=== PATIENT | male | born 1970 | race Caucasian/White ===

== ENCOUNTER 2024-10-06 16:32 | Inpatient (IN) | payer OTHER ==
[2024-10-06 18:06] VITALS: BMI 26.9
[2024-10-06] MEDS ORDERED: guaiFENesin 600 MG TABLET.ER (FP) PO PRN (18:26)
[2024-10-06] MEDS ORDERED: BENZONATATE 200 MG CAPSULE PO PRN (18:26)
[2024-10-06] MEDS ORDERED: POLYETHYLENE GLYCOL (HEALTHYLAX) 3350 17 GM PACKET PO PRN (18:26)
[2024-10-06] MEDS ORDERED: MAGNESIUM HYDROX 2400MG/30ML ORAL SUSPENSION 30 ML CUP PO PRN (18:26)
[2024-10-06] MEDS ORDERED: NALOXONE (NARCAN) HCL 4 MG/0.1 ML SPRAY NS PRN (18:26)
[2024-10-06] MEDS ORDERED: IBUPROFEN 400 MG TABLET (FP) PO PRN (18:26)
[2024-10-06] MEDS ORDERED: MAG HYDROX/AL HYDROX/SIMETH 30 ML UNIT-DOSE CUP PO PRN (18:26)
[2024-10-06] MEDS ORDERED: BENZOCAINE/MENTHOL (CHLORASEPTIC ) LOZENGE MM PRN (18:26)
[2024-10-06] MEDS ORDERED: LOPERAMIDE HCL 2 MG CAPSULE PO PRN (18:26)
[2024-10-06] MEDS ORDERED: NICOTINE POLACRILEX 2 MG LOZENGE BC PRN (18:26)
[2024-10-06] MEDS ORDERED: NICOTINE POLACRILEX 2 MG GUM BUC PRN (18:26)
[2024-10-06] MEDS: THIAMINE 100 MG TABLET PO SCH (21:24)
[2024-10-06] MEDS: MELATONIN 5 MG TABLETS PO SCH (21:24)
[2024-10-06] MEDS: TUBERCULIN PPD 5 TU/0.1ML SYRINGE (IN PATIENT USE ONLY) ID ONE (21:28)
[2024-10-07] MEDS: PRENATAL VITAMINS W/ FOLIC ACID TABLET (FP) PO SCH (09:15)
[2024-10-07] MEDS: IBUPROFEN 600 MG TABLET (FP) PO PRN (09:15)
[2024-10-07 12:23] LABS: HEMATOCRIT 28.1 % (35.4-49); HEMOGLOBIN 8.8 GM/dL (11.7-16.9); MCH 20.2 pg (25.7-33.7); MCHC 31.1 g/dl (32.0-35.9); MEAN CELL VOLUME 64.9 fl (80-96); MEAN PLT VOLUME 8.6 fl (7.5-11.1); PLATELET COUNT 274 10^3/uL (134-434); RBC 4.33 M/mm3 (4.00-5.60); RDW 17.4 % (11.9-15.9); WHITE BLOOD COUNT 5.8 K/mm3 (4.0-10.0)
[2024-10-07 12:25] LABS: URINE APPEARANCE Cloudy; URINE BILIRUBIN Negative (NEGATIVE); URINE COLOR Dark yellow; URINE GLUCOSE (UA) Negative (NEGATIVE); URINE KETONE Negative (NEGATIVE); URINE LEUK ESTERASE Negative (NEGATIVE); URINE NITRITE Negative (NEGATIVE); URINE PROTEIN Negative (NEGATIVE); URINE UROBILINOGEN >=8.0 E.U./dl mg/dL (0.2-1.0)
[2024-10-07 12:45] LABS: ALBUMIN 3.1 g/dl (3.4-5.0); BILIRUBIN,TOTAL 0.5 mg/dL (0.2-1)
[2024-10-07 12:46] LABS: BLOOD UREA NITROGEN 15.5 mg/dL (7-18); TOT PROT 6.3 g/dl (6.4-8.2)
[2024-10-07 12:48] LABS: CREATININE 0.7 mg/dL (0.55-1.3)
[2024-10-07] MEDS: QUEtiapine FUMARATE 50 MG TABLET PO SCH (21:17)
[2024-10-08] MEDS: FERROUS SO4 325 MG TABLET (FP) PO SCH (10:32)
[2024-10-08] MEDS: FLU VACCINE (FLULAVAL) PF 45 MCG/0.5 ML SYRINGE 2024-2025 IM ONE (12:54)
[2024-10-10] MEDS: PNEUMOC 20-VAL CONJ-DIP CRM/PF 0.5 ML SYRINGE IM ONE (12:45)
[2024-10-16] MEDS: NALTREXONE HCL 50 MG TABLET PO ONE (18:04)
[2024-10-16] MEDS: LIDOCAINE PATCH REMOVAL MC SCH (21:13)
[2024-10-16] MEDS: BACLOFEN 10 MG TABLET (FP) PO SCH (21:13)
[2024-10-17] MEDS: NALTREXONE HCL 50 MG TABLET PO SCH (10:15)
[2024-10-17] MEDS: LIDOCAINE 5% TOPICAL PATCH TP SCH (10:16)
[2024-10-19 11:35] LABS: INR 1.04 (0.83-1.09); PROTHROMBIN TIME (PATIENT) 11.4 SEC (9.7-13.0)
[2024-10-22] MEDS: BACLOFEN 10 MG TABLET (FP) PO SCH (21:14)
[2024-10-23] MEDS: ACETAMINOPHEN 325 MG TABLET (FP) PO PRN (18:55)
[2024-11-02 06:03] VITALS: TEMP 97.5
[2024-11-03 05:51] VITALS: BP 127/75; PULSE 82; RESP 16
== END 2024-11-03 09:29 | disposition home or self-care (01) | DRG 895 ==
LOC: YASAS 16:32 → Y3NR 19:34 → Y3W 10-07 09:03
PROVIDERS: ADMIT Psychiatry & Neurology Pain Medicine; ATTEND Psychiatry & Neurology Pain Medicine
PROC: HZ42ZZZ Group Counseling for Substance Abuse Treatment, Cognitive-Behavioral (ICD-10-PCS; principal; 2024-10-06)
DX: F14.20 Cocaine dependence, uncomplicated (principal); F19.282 Other psychoactive substance dependence with psychoactive substance-induced sleep disorder; F10.20 Alcohol dependence, uncomplicated; F17.210 Nicotine dependence, cigarettes, uncomplicated; F19.24 Other psychoactive substance dependence with psychoactive substance-induced mood disorder; F32.A Depression, unspecified; M54.50 Low back pain, unspecified; G89.29 Other chronic pain; Z86.73 Personal history of transient ischemic attack (TIA), and cerebral infarction without residual deficits; Z86.74 Personal history of sudden cardiac arrest
CPT/HCPCS: 36415; 71046-TC-FY; 80053; 80305; 80307; 81003; 82140; 82652; 82962; 83735; 85027; 85610; 86780; 87811; 90656; 90677; 93005; 93010; G0008; G0009; J0475